=== PATIENT | male | born 1985 | race Hispanic/Latino ===

== ENCOUNTER 2022-11-13 08:16 | Emergency (ER) | payer OTHER ==
[~2022-11-13] VITALS: Ht 165.1 cm; Wt 59.0 kg
[2022-11-13 09:01] VITALS: BP 114/76
== END 2022-11-13 10:24 | disposition home or self-care (01) ==
LOC: EDH 08:16
DX: S60.042A Contusion of left ring finger without damage to nail, initial encounter (principal); W23.0XXA Caught, crushed, jammed, or pinched between moving objects, initial encounter; Y93.89 Activity, other specified; Y92.89 Other specified places as the place of occurrence of the external cause; Y99.8 Other external cause status
CPT/HCPCS: 11740; 73140

== ENCOUNTER 2023-03-22 11:06 | Emergency (ER) | payer OTHER ==
[~2023-03-22] VITALS: Ht 165.1 cm; Wt 61.2 kg
[2023-03-22 11:33] VITALS: BP 136/89; PULSE 94; RESP 18; O2SAT 99
== END 2023-03-22 11:35 | disposition home or self-care (01) ==
LOC: EDH 11:06
DX: M25.532 Pain in left wrist (principal); Z53.29 Procedure and treatment not carried out because of patient's decision for other reasons
CPT/HCPCS: 99281